=== PATIENT | female | born 1960 | race Caucasian/White ===

== ENCOUNTER → 2018-07-01 11:24 | Outpatient (CLI) | payer OTHER, SELFPAY ==
[2018-07-01 12:21] LABS: Influenza A and B by PCR Rapid Negative (Negative)
== END ==
PROVIDERS: Visit Provider Physician Assistant
DX: R68.89 Other general symptoms and signs (principal)
CPT/HCPCS: 87400

== ENCOUNTER 2018-07-01 13:28 | Emergency (ER) | payer OTHER, SELFPAY ==
[2018-07-01 13:37] VITALS: BP 177/102; PULSE 122; RESP 17; TEMP 36.8; O2SAT 96; BMI 40.3
[2018-07-01 14:07] LABS: Bacteria Urine None Seen
[2018-07-01 14:22] LABS: Calcium Oxalate Crystals Urine Many; RBC Urine 1-5/HPF (0-5/HPF); Squamous Epithelial Cell Urine 5-10 /HPF; WBC Urine 5-10/HPF (0-5/HPF)
[2018-07-01 14:23] LABS: Amorphous Sediment Urine 1+; Culture Indicated Urine Cult Not Indicated
--- NOTE | 2018-07-01 15:28 | DI.RAD.S_ITS ---
PROCEDURE: XR ACUTE ABDOMEN SERIES INDICATIONS: abdominal distention TECHNIQUE: One view chest and two views of the abdomen were acquired. COMPARISON: None. FINDINGS: Surgical changes and devices: None. Chest: Lungs are clear. Heart size is normal. No pleural effusions. No pneumoperitoneum. Abdomen: Bowel gas pattern is normal. A moderate amount of stool is seen within the colon. No suspicious calcifications. Visualized solid organ contours appear normal. Bones: No suspicious bony lesions. S-shaped scoliotic curvature is seen. Age-appropriate bony degenerative changes are seen. IMPRESSION: There is a moderate amount of stool seen within the colon. Please correlate with an underlying history of constipation. Dictated by: Donald Knight M.D. on 07/01/2018 at 14:51 Approved by: Donald Knight M.D. on 07/01/2018 at 14:52
[2018-07-01 15:40] LABS: Add Manual Diff / Slide Review NO; Basophils Absolute Auto 100 /uL (0-100); Basophils Percent Auto 0.8 % (0-2); Eosinophils Absolute Auto 0 /uL (0-450); Eosinophils Percent Auto 0.1 % (2-4); Hematocrit 43.4 % (36-46); Hemoglobin 14.2 g/dL (12.0-16.0); Lymphocytes Absolute Auto 2100 /uL (1100-4500); Lymphocytes Percent Auto 17.9 % (25-40); Mean Corpuscular HGB Conc 32.6 % (30-36); Mean Corpuscular Hemoglobin 28.4 PG (26-34); Monocytes Absolute Auto 400 /uL (0-900); Monocytes Percent Auto 3.7 % (3-14); Neutrophils Absolute Auto 8900 /uL (1500-7000); Neutrophils Percent Auto 77.5 % (50-75); Platelet Count 419 X10^3/uL (150-400); Red Blood Cell Count 4.99 X10^6/uL (4.0-5.2); Red Cell Distribution Width 12.8 % (11.6-14.8); White Blood Cell Count 11.5 X10^3/uL (4.5-11.0)
--- NOTE | 2018-07-01 15:48 | ED.ABDPAIN ---
HPI - Abdominal Pain <Nanette Bueno PA-C - Last Filed: 07/01/18 20:31> General Chief Complaint: Abdominal Pain Stated Complaint: STOMACH PAIN Time Seen by Provider: 07/01/18 17:36 Source: patient Mode of arrival: ambulatory Limitations: no limitations History of Present Illness HPI narrative: This 57-year-old female is sent from walk-in clinic for abdominal discomfort and bloating. She states that she has had this sensation for about 2 weeks. She states that she is having daily bowel movements but these are smaller than normal and feels like she does not completely evacuate. She denies abdominal pain aside from after shoveling a lot of heavy snow recently, none today. She denies any vomiting. she denies any urinary symptoms. She has not had blood in the stools. She has not had any chest pain or dyspnea. She states she feels hot and cold at times but has not had a known fever at home, not sure that this is not due to menopause. She states that she stopped drinking coffee a couple of weeks ago though does drink another caffeinated beverage in the morning. She States that she has quit eating junk food, eating a healthier diet with yogurt, lots of vegetables including cruciferous vegetables and more fiber. she denies any other complaints on systems review aside from some chronic nasal and sinus congestion and sneezing and feeling anxious about her initially elevated blood pressure. Related Data Home Medications Medication Instructions Recorded Confirmed No Known Home Medications 07/01/18 07/01/18 Allergies Allergy/AdvReac Type Severity Reaction Status Date / Time codeine Allergy Verified 07/01/18 13:36 Review of Systems <Nanette Bueno PA-C - Last Filed: 07/01/18 20:31> Review of Systems ROS Unobtainable: All systems reviewed & are unremarkable except as noted in HPI and below PFSH <Nanette Bueno PA-C - Last Filed: 07/01/18 20:31> Medical History Healthy female (Chronic) No pertinent family history (Chronic) Surgical History No pertinent past surgical history (Chronic) Social History Smoking Status: Current every day smoker Social History Smoking Status: Current every day smoker Exam <MARCE Beltran Last Filed: 07/01/18 20:31> Narrative Exam Narrative: GENERAL APPEARANCE: Patient sitting comfortably, appears well. HEENT: PERRL, EOMI, no scleral icterus, normal oropharynx NECK: Supple LUNGS: Clear to auscultation bilaterally. HEART: Rate and rhythm regular, normal S1 and S2, no S3 or S4. ABDOMEN: Soft, nontender, nondistended, bowel sounds present x 4 quadrants, no masses palpable, no hepatosplenomegaly. EXTREMITIES: No edema, no cyanosis DERMATOLOGIC: No jaundice or exanthem NEUROLOGIC: Alert and oriented with normal speech and coordination Initial Vital Signs Initial Vital Signs: Vital Signs Temperature 98.3 F 07/01/18 13:37 Pulse Rate 122 H 07/01/18 13:37 Respiratory Rate 17 07/01/18 13:37 Blood Pressure 177/102 H 07/01/18 13:37 Pulse Oximetry 96 07/01/18 13:37 <Olimpia Swanson DO - Last Filed: 07/02/18 07:57> Initial Vital Signs Initial Vital Signs: Vital Signs Temperature 98.3 F 07/01/18 13:37 Pulse Rate 122 H 07/01/18 13:37 Respiratory Rate 17 07/01/18 13:37 Blood Pressure 177/102 H 07/01/18 13:37 Pulse Oximetry 96 07/01/18 13:37 Course <MARCE Beltran Last Filed: 07/01/18 20:31> Orders Ordered: ED Orders 07/01/18 13:45 Urine Microscopic Stat 07/01/18 15:27 Complete Blood Count AUTO DIFF Stat Comprehensive Metabolic Panel Stat Lipase Stat Partial Thromboplastin Time Stat Prothrombin Time INR Stat 07/01/18 15:28 XR acute abdomen series Stat Vital Signs - 8 hr 07/01/18 13:37 07/01/18 16:23 07/01/18 17:33 Temperature 98.3 F 98.0 F Pulse Rate 122 H 104 H 104 H Respiratory Rate 17 Blood Pressure 177/102 H Blood Pressure [Left Arm] 145/94 H 134/87 Pulse Oximetry 96 96 07/01/18 18:17 Temperature 98.5 F Pulse Rate 101 H Respiratory Rate 16 Blood Pressure 138/73 Blood Pressure [Left Arm] Pulse Oximetry 94 <Olimpia Swanson DO - Last Filed: 07/02/18 07:57> Orders Ordered: ED Orders 07/01/18 13:45 Urine Microscopic Stat 07/01/18 15:27 Complete Blood Count AUTO DIFF Stat Comprehensive Metabolic Panel Stat Lipase Stat Partial Thromboplastin Time Stat Prothrombin Time INR Stat 07/01/18 15:28 XR acute abdomen series Stat Vital Signs - 8 hr 07/01/18 13:37 07/01/18 16:23 07/01/18 17:33 Temperature 98.3 F 98.0 F Pulse Rate 122 H 104 H 104 H Respiratory Rate 17 Blood Pressure 177/102 H Blood Pressure [Left Arm] 145/94 H 134/87 Pulse Oximetry 96 96 07/01/18 18:17 Temperature 98.5 F Pulse Rate 101 H Respiratory Rate 16 Blood Pressure 138/73 Blood Pressure [Left Arm] Pulse Oximetry 94 MDM - Abdominal Pain <Nanette Bueno PA-C - Last Filed: 07/01/18 20:31> Lab Data Result diagrams: 07/01/18 15:27 07/01/18 15:27 Lab Results 07/01/18 07/01/18 07/01/18 Range/Units 13:45 15:27 15:27 WBC 11.5 H (4.5-11.0) X10^3/uL RBC 4.99 (4.0-5.2) X10^6/uL Hgb 14.2 (12.0-16.0) g/dL Hct 43.4 (36-46) % MCV 87.0 (80-100) fL MCH 28.4 (26-34) PG MCHC 32.6 (30-36) % RDW 12.8 (11.6-14.8) % Plt Count 419 H (150-400) X10^3/uL Neut % (Auto) 77.5 H (50-75) % Lymph % (Auto) 17.9 L (25-40) % [place] % (Auto) 3.7 (3-14) % Eos % (Auto) 0.1 L (2-4) % Baso % (Auto) 0.8 (0-2) % Neut # (Auto) 8900 H (0946-5280) /uL Lymph # (Auto) 2100 (7427-9316) /uL [place] # (Auto) 400 (0-900) /uL Eos # (Auto) 0 (0-450) /uL Baso # (Auto) 100 (0-100) /uL PT 11.8 (10.1-12.7) SECONDS INR 1.0 (0.9-1.3) APTT 33 (26.4-36.2) SECONDS Sodium (137-145) mmol/L Potassium (3.4-5.1) mmol/L Chloride (98-107) mmol/L Carbon Dioxide (22-32) mmol/L BUN (7-17) mg/dL Creatinine (0.52-1.04) mg/dL Estimated GFR (>60) mL/min BUN/Creatinine Ratio (6-22) Glucose (70-100) mg/dL Calcium (8.4-10.2) mg/dL Total Bilirubin (0.2-1.3) mg/dL AST (14-36) IU/L ALT (9-52) IU/L Alkaline Phosphatase (38-126) U/L Total Protein (6.3-8.2) g/dL Albumin (3.5-5.0) g/dL Globulin (1.7-4.1) g/dL Albumin/Globulin Ratio (1.0-2.8) Lipase (23-300) U/L Urine RBC 1-5/hpf (0-5/HPF) Urine WBC 5-10/hpf H (0-5/HPF) Ur Squamous Epith Cells 5-10 /hpf H Calcium Oxalate Crystal Many H (None) Amorphous Sediment 1+ Urine Bacteria None seen (None) Ur Culture Indicated? Cult not indicated 07/01/18 Range/Units 15:27 WBC (4.5-11.0) X10^3/uL RBC (4.0-5.2) X10^6/uL Hgb (12.0-16.0) g/dL Hct (36-46) % MCV (80-100) fL MCH (26-34) PG MCHC (30-36) % RDW (11.6-14.8) % Plt Count (150-400) X10^3/uL Neut % (Auto) (50-75) % Lymph % (Auto) (25-40) % [place] % (Auto) (3-14) % Eos % (Auto) (2-4) % Baso % (Auto) (0-2) % Neut # (Auto) (1514-5157) /uL Lymph # (Auto) (1397-0303) /uL [place] # (Auto) (0-900) /uL Eos # (Auto) (0-450) /uL Baso # (Auto) (0-100) /uL PT (10.1-12.7) SECONDS INR (0.9-1.3) APTT (26.4-36.2) SECONDS Sodium 139 (137-145) mmol/L Potassium 4.0 (3.4-5.1) mmol/L Chloride 103 (98-107) mmol/L Carbon Dioxide 25 (22-32) mmol/L BUN 15 (7-17) mg/dL Creatinine 0.50 L (0.52-1.04) mg/dL Estimated GFR > 60.0 (>60) mL/min BUN/Creatinine Ratio 30.0 H (6-22) Glucose 118 H (70-100) mg/dL Calcium 9.6 (8.4-10.2) mg/dL Total Bilirubin 0.6 (0.2-1.3) mg/dL AST 31 (14-36) IU/L ALT 29 (9-52) IU/L Alkaline Phosphatase 60 (38-126) U/L Total Protein 8.4 H (6.3-8.2) g/dL Albumin 4.7 (3.5-5.0) g/dL Globulin 3.7 (1.7-4.1) g/dL Albumin/Globulin Ratio 1.3 (1.0-2.8) Lipase 75 (23-300) U/L Urine RBC (0-5/HPF) Urine WBC (0-5/HPF) Ur Squamous Epith Cells Calcium Oxalate Crystal (None) Amorphous Sediment Urine Bacteria (None) Ur Culture Indicated? Point of care testing: Urine Dip Bedside Urine Glucose Negative Bedside Urine Bilirubin - Negative Bedside Urine Ketone +++ 80 Urine Specific [place] 1.030 Bedside Urine Occult Blood +/- Bedside Urine pH 6.0 Bedside Urine Protein +++ 300 Bedside Urine Urobilinogen +/- 1mg Bedside Urine Nitrite - Negative Bedside Urine Leukocytes - Negative Esterase Imaging Data Abdominal x-ray: Radiologist's impression: 18 Nanette Bueno PA-C Find Patient Imaging Cornelia Rosa 57 F 1960 ACTIVITY DATE EXAM STATUS AUTHOR 07/01/18 15:[address] [address] XRay Report Signed Patient: Cornelia Rosa RMR#: [id number] : 1960cct:[id number] Age/Sex: 57 / FDate of Service: 07/01/18 Loc: ED Accession Number: [id number] Procedure: XR acute abdomen series Ordering Provider: Nanette Bueno P.A-C PROCEDURE: XR ACUTE ABDOMEN SERIES INDICATIONS: abdominal distention TECHNIQUE: One view chest and two views of the abdomen were acquired. COMPARISON: None. FINDINGS: Surgical changes and devices: None. Chest: Lungs are clear. Heart size is normal. No pleural effusions. No pneumoperitoneum. Abdomen: Bowel gas pattern is normal. A moderate amount of stool is seen within the colon. No suspicious calcifications. Visualized solid organ contours appear normal. Bones: No suspicious bony lesions. S-shaped scoliotic curvature is seen. Age-appropriate bony degenerative changes are seen. IMPRESSION: There is a moderate amount of stool seen within the colon. Please correlate with an underlying history of constipation. Dictated by: Donald Knight M.D. on 07/01/2018 at 14:51 Approved by: Donald Knight M.D. on 07/01/2018 at 14:52 <Olimpia Swanson DO - Last Filed: 07/02/18 07:57> Lab Data Lab Results 07/01/18 07/01/18 07/01/18 Range/Units 13:45 15:27 15:27 WBC 11.5 H (4.5-11.0) X10^3/uL RBC 4.99 (4.0-5.2) X10^6/uL Hgb 14.2 (12.0-16.0) g/dL Hct 43.4 (36-46) % MCV 87.0 (80-100) fL MCH 28.4 (26-34) PG MCHC 32.6 (30-36) % RDW 12.8 (11.6-14.8) % Plt Count 419 H (150-400) X10^3/uL Neut % (Auto) 77.5 H (50-75) % Lymph % (Auto) 17.9 L (25-40) % [place] % (Auto) 3.7 (3-14) % Eos % (Auto) 0.1 L (2-4) % Baso % (Auto) 0.8 (0-2) % Neut # (Auto) 8900 H (7401-6920) /uL Lymph # (Auto) 2100 (4514-1601) /uL [place] # (Auto) 400 (0-900) /uL Eos # (Auto) 0 (0-450) /uL Baso # (Auto) 100 (0-100) /uL PT 11.8 (10.1-12.7) SECONDS INR 1.0 (0.9-1.3) APTT 33 (26.4-36.2) SECONDS Sodium (137-145) mmol/L Potassium (3.4-5.1) mmol/L Chloride (98-107) mmol/L Carbon Dioxide (22-32) mmol/L BUN (7-17) mg/dL Creatinine (0.52-1.04) mg/dL Estimated GFR (>60) mL/min BUN/Creatinine Ratio (6-22) Glucose (70-100) mg/dL Calcium (8.4-10.2) mg/dL Total Bilirubin (0.2-1.3) mg/dL AST (14-36) IU/L ALT (9-52) IU/L Alkaline Phosphatase (38-126) U/L Total Protein (6.3-8.2) g/dL Albumin (3.5-5.0) g/dL Globulin (1.7-4.1) g/dL Albumin/Globulin Ratio (1.0-2.8) Lipase (23-300) U/L Urine RBC 1-5/hpf (0-5/HPF) Urine WBC 5-10/hpf H (0-5/HPF) Ur Squamous Epith Cells 5-10 /hpf H Calcium Oxalate Crystal Many H (None) Amorphous Sediment 1+ Urine Bacteria None seen (None) Ur Culture Indicated? Cult not indicated 07/01/18 Range/Units 15:27 WBC (4.5-11.0) X10^3/uL RBC (4.0-5.2) X10^6/uL Hgb (12.0-16.0) g/dL Hct (36-46) % MCV (80-100) fL MCH (26-34) PG MCHC (30-36) % RDW (11.6-14.8) % Plt Count (150-400) X10^3/uL Neut % (Auto) (50-75) % Lymph % (Auto) (25-40) % [place] % (Auto) (3-14) % Eos % (Auto) (2-4) % Baso % (Auto) (0-2) % Neut # (Auto) (1299-3469) /uL Lymph # (Auto) (1087-1559) /uL [place] # (Auto) (0-900) /uL Eos # (Auto) (0-450) /uL Baso # (Auto) (0-100) /uL PT (10.1-12.7) SECONDS INR (0.9-1.3) APTT (26.4-36.2) SECONDS Sodium 139 (137-145) mmol/L Potassium 4.0 (3.4-5.1) mmol/L Chloride 103 (98-107) mmol/L Carbon Dioxide 25 (22-32) mmol/L BUN 15 (7-17) mg/dL Creatinine 0.50 L (0.52-1.04) mg/dL Estimated GFR > 60.0 (>60) mL/min BUN/Creatinine Ratio 30.0 H (6-22) Glucose 118 H (70-100) mg/dL Calcium 9.6 (8.4-10.2) mg/dL Total Bilirubin 0.6 (0.2-1.3) mg/dL AST 31 (14-36) IU/L ALT 29 (9-52) IU/L Alkaline Phosphatase 60 (38-126) U/L Total Protein 8.4 H (6.3-8.2) g/dL Albumin 4.7 (3.5-5.0) g/dL Globulin 3.7 (1.7-4.1) g/dL Albumin/Globulin Ratio 1.3 (1.0-2.8) Lipase 75 (23-300) U/L Urine RBC (0-5/HPF) Urine WBC (0-5/HPF) Ur Squamous Epith Cells Calcium Oxalate Crystal (None) Amorphous Sediment Urine Bacteria (None) Ur Culture Indicated? Point of care testing: Urine Dip Bedside Urine Glucose Negative Bedside Urine Bilirubin - Negative Bedside Urine Ketone +++ 80 Urine Specific [place] 1.030 Bedside Urine Occult Blood +/- Bedside Urine pH 6.0 Bedside Urine Protein +++ 300 Bedside Urine Urobilinogen +/- 1mg Bedside Urine Nitrite - Negative Bedside Urine Leukocytes - Negative Esterase Discharge Plan Departure Patient Disposition: Home Clinical Impression: Constipation Qualifiers: Constipation type: unspecified constipation type Qualified Code(s): K59.00 - Constipation, unspecified Discharge Date/Time: 07/01/18 18:19 Interventions: ED Discharge Assessment Last Done: 07/01/18 18:17 Instructions: DI for Constipation Activity Restrictions/Additional Instructions: there was no acute problem found on your lab tests, and your x-ray showed some constipation but no bowel blockage or other new problem. I suspect that this is related to your recent dietary changes. Please return as we talked about if you have acutely worsening symptoms, or new symptoms such as vomiting or abdominal pain. Otherwise, please continue your healthy diet. Increase your exercise. Try mixing 4-6 oz of apple juice and prune juice with 1 dose of [id number] MiraLax and liquid Maalox to help with your constipation and to produce a normal bowel movement. You can repeat that daily if needed. when the constipation is better, continue MiraLax once daily to help keep the stools regular. Please follow-up with your PCP for recheck in about a week to assess your progress and determine whether any other changes her testing are needed. Prescriptions: No Action No Known Home Medications RF: 0 Referrals: Vicki Byrd PA-C [Primary Care Provider] - <Olimpia Swanson DO - Last Filed: 07/02/18 07:57> [facility] ED Attending Ruthie Attestation: I was immediately available in the department for consultation. Documentation has been reviewed. I agree with assessment and plan.
[2018-07-01 15:49] LABS: Prothrombin Time 11.8 SECONDS (10.1-12.7)
[2018-07-01 15:52] LABS: PTT Partial Thromboplastin Tim 33 SECONDS (26.4-36.2)
[2018-07-01 15:55] LABS: Alanine Aminotransferase 29 IU/L (9-52); Albumin 4.7 g/dL (3.5-5.0); Albumin Globulin Ratio 1.3 (1.0-2.8); Alkaline Phosphatase 60 U/L (38-126); Aspartate Aminotransferase 31 IU/L (14-36); Bilirubin Total 0.6 mg/dL (0.2-1.3); Blood Urea Nitrogen 15 mg/dL (7-17); Calcium 9.6 mg/dL (8.4-10.2); Carbon Dioxide 25 mmol/L (22-32); Chloride 103 mmol/L (98-107); Estimated Glomerular Filt Rate > 60.0 mL/min (>60); Globulin 3.7 g/dL (1.7-4.1); Glucose 118 mg/dL (70-100); HEMOLYSIS < 15 (0-50); Lipase 75 U/L (23-300); Sodium 139 mmol/L (137-145); Total Protein 8.4 g/dL (6.3-8.2)
[2018-07-01 16:23] VITALS: BP 145/94; PULSE 104; TEMP 36.7; O2SAT 96
[2018-07-01 17:33] VITALS: BP 134/87; PULSE 104
--- NOTE | 2018-07-01 18:11 | PC.NURSE ---
I agree with all assessments and treatments completed by the student nurse.
[2018-07-01 18:17] VITALS: BP 138/73; PULSE 101; RESP 16; TEMP 36.9; O2SAT 94
== END 2018-07-01 18:19 | disposition home or self-care (01) ==
PROVIDERS: Emergency Medicine; Emergency Provider Internal Medicine; PCP Physician Assistant
DX: K59.00 Constipation, unspecified (principal)
CPT/HCPCS: 36415; 74022; 80053; 81003; 81015; 83690; 85025; 85610; 85730; 99283; 99284

== ENCOUNTER 2018-07-24 11:58 | Emergency (ER) | payer OTHER, SELFPAY ==
[2018-07-24 12:01] VITALS: BP 153/103; PULSE 125; RESP 16; TEMP 36.9; O2SAT 97; BMI 39.4
[2018-07-24 13:40] VITALS: BP 162/71; PULSE 102; RESP 20; O2SAT 97
--- NOTE | 2018-07-24 14:01 | ED_ITS ---
HPI - Skin/Abscess/Foreign Bdy <YONI Johnson - Last Filed: 07/24/18 22:44> General Chief complaint: Skin/Abscess/Foreign Body Stated complaint: CYST ON BACK,BLACK AROUND Time Seen by Provider: 07/24/18 13:09 Source: patient Mode of arrival: ambulatory Limitations: no limitations History of Present Illness HPI narrative: 57-year-old healthy female that is an everyday smoker for comp laint of having a cyst to her back. She states that approximately 7 days ago she was taking a shower when the cyst to her back opened and drained fluid. She states that now it is itching. she denies any drainage from the area since this timeframe. No trauma to the area. She denies any fevers. She states that she has had sinus issues over the past several weeks. she was treated for sinusitis with antibiotics however she states that she has not been taking the antibiotics as prescribed and is only taking a few pills. she states that sinus discomfort is now better. however she is still having drainage. She was having pain that went into her teeth and also had sinuses this has resolved. she is tolerating p.o. intake well. she denies any discomfort. No shortness of breath. No acute distress. No other concerns or complaints. Related Data Previous Rx's Medication Instructions Recorded fluoxetine 20 mg capsule 20 mg PO DAILY #30 cap 07/13/18 doxycycline monohydrate 100 mg 100 mg PO BID #20 cap 07/21/18 capsule Allergies Allergy/AdvReac Type Severity Reaction Status Date / Time codeine Allergy Verified 07/13/18 14:39 Review of Systems <YONI Johnson - Last Filed: 07/24/18 22:44> Constitutional Denies chills, Denies fever(s), Denies lethargy and Denies weakness Eyes Denies change in vision, Denies eye discharge, Denies irritation and Denies loss of vision ENT Ears, Nose, Mouth, and Throat: Denies change in voice, Denies neck pain and Denies sore throat Comments: sinus drainage Cardiovascular Denies chest pain, Denies irregular heart rhythm, Denies lightheadedness, Denies palpitations, Denies dyspnea, Denies dyspnea on exertion and Denies orthopnea Respiratory Denies cough, Denies dyspnea, Denies dyspnea on exertion and Denies wheezing Gastrointestinal Gastrointestinal: Denies abdominal pain, Denies change in bowel habits, Denies diarrhea, Denies nausea and Denies vomiting Genitourinary Denies hematuria, Denies flank pain, Denies urinary incontinence and Denies urinary urgency Musculoskeletal Denies neck pain Integumentary/Breasts Comments: Cyst to a back Neurologic Denies confusion, Denies loss of vision and Denies weakness Psychiatric Denies anxiety, Denies confusion, Denies depression, Denies homicidal ideation and Denies suicidal ideation Endocrine Denies palpitations Allergic/Immunologic Denies wheezing PFSH <YONI Johnson - Last Filed: 07/24/18 22:44> Medical History Healthy female (Chronic) No pertinent family history (Chronic) Surgical History No pertinent past surgical history (Chronic) Social History Smoking Status: Current every day smoker Social History Smoking Status: Current every day smoker Exam <YONI Johnson - Last Filed: 07/24/18 22:44> Initial Vital Signs Initial Vital Signs: Vital Signs Temperature 98.4 F 07/24/18 12:01 Pulse Rate 125 H 07/24/18 12:01 Respiratory Rate 16 07/24/18 12:01 Blood Pressure 153/103 H 07/24/18 12:01 Pulse Oximetry 97 07/24/18 12:01 Const General: cooperative and well developed Nutritional Appearance: well nourished Orientation: alert, awake, oriented x3 and not confused HENMT Ears: external ears normal and TM's normal bilaterally Face and sinus: normal facial exam and sinuses nontender Mouth: oral mucosae normal and moist mucous membranes Throat: posterior oropharynx normal Eyes Conjunctivae: conjunctivae normal Sclera: sclerae normal Pupils: PERRL EOM: EOM intact bilaterally Neck Neck: normal visual inspection, trachea midline, No lymphadenopathy, No midline deformity and No JVD Lymphatic: No lymphedema Chest Chest: normal inspection of the chest Resp Effort & Inspection: normal respiratory effort, able to speak in complete sentences, no respiratory distress and no use of accessory muscles Auscultation: clear to auscultation bilaterally, no rales, no rhonchi and no wheezes Cardio Rate: regular rate Rhythm: regular rhythm Heart Sounds: no click, no gallops, no murmurs and no rubs Pulses: normal peripheral pulses Skin Other: erythema to right side of thoracic back approximately 2.5 cm by 1 cm with wound area that appears to be healing well with no signs of infection. No induration no fluctuance. Neuro General: alert, oriented x3, gait normal and no focal motor deficits Speech: speech normal <Patience Calero MD - Last Filed: 07/28/18 18:10> Initial Vital Signs Initial Vital Signs: Vital Signs Temperature 98.4 F 07/24/18 12:01 Pulse Rate 125 H 07/24/18 12:01 Respiratory Rate 16 07/24/18 12:01 Blood Pressure 153/103 H 07/24/18 12:01 Pulse Oximetry 97 07/24/18 12:01 Course <YONI Johnson - Last Filed: 07/24/18 22:44> Vital Signs - 8 hr 07/24/18 14:45 Pulse Rate 105 H Respiratory Rate 18 Pulse Oximetry 97 <Patience Calero MD - Last Filed: 07/28/18 18:10> Vital Signs - 8 hr 07/24/18 14:45 Pulse Rate 105 H Respiratory Rate 18 Pulse Oximetry 97 MDM - Skin/Abscess/Foreign Bdy <YONI Johnson - Last Filed: 07/24/18 22:44> MDM Narrative Medical decision making narrative: Cyst area to back of patient's complaint with no signs of infection. No induration no fluctuance wound area appears to be healing well. Healing process most likely causing her itching sensation She feels. unknown etiology of this cyst prior to drainage differential possibilities of abscess or epidermoid cyst. patient reassured. sinusitis symptoms appear to be doing better after taking her antibiotics however she is not taking them as directed recommended she complete the course as directed. Use [id number] Tylenol or Motrin as needed for any discomfort. May use saline irrigation and nasal passages to help with congestion. blood pressure and heart rate were elevated in the emergency room today. After asking patient to relax her blood pressure and heart rate normalized. Patient states that she is anxious coming to the emergency room. will have her check her blood pressure a few times a day and then bring results with her as she follows up with primary care provider in the next week or 2. if any worsening symptoms return to the emergency room. Discharge Plan Departure Patient Disposition: Home Clinical Impression: Sebaceous cyst Acute sinusitis Qualifiers: Sinusitis location: unspecified location Recurrence: not specified as recurrent Qualified Code(s): J01.90 - Acute sinusitis, unspecified Discharge Date/Time: 07/24/18 14:45 Interventions: ED Discharge Assessment Last Done: 07/24/18 14:45 Activity Restrictions/Additional Instructions: Ruptured cyst to to your back appears to be healing well with no acute signs of infection. Recommend finishing antibiotics that was already prescribed for sinusitis as directed. May use saline irrigation and nasal passages to help with sinus drainage. Use [id number] Tylenol or Motrin as needed for any discomfort. Blood pressure is elevated today in the emergency room. Recommend checking a blood pressure a few times a day and recording results. Bring these results to to her primary care provider in a week or 2 when you follow-up with her primary care provider. For any worsening symptoms return to the emergency room. Prescriptions: No Action fluoxetine 20 mg capsule 20 mg PO DAILY Qty: 30 RF: 3 doxycycline monohydrate 100 mg capsule 100 mg PO BID Qty: 20 RF: 0 Referrals: Vicki Byrd PA-C [Primary Care Provider] -
[2018-07-24 14:45] VITALS: PULSE 105; RESP 18; O2SAT 97
== END 2018-07-24 14:45 | disposition home or self-care (01) ==
PROVIDERS: Emergency Provider Nurse Practitioner Family; PCP Physician Assistant
DX: L72.3 Sebaceous cyst (principal); J01.90 Acute sinusitis, unspecified
CPT/HCPCS: 99282

== ENCOUNTER → 2018-10-25 08:18 | Outpatient (CLI) | payer OTHER, SELFPAY ==
[2018-10-25 09:32] LABS: Cholesterol 306 mg/dL (140-199); HDL Cholesterol 40 mg/dL (40-60); LDL Cholesterol Calculated 232 mg/dL (<100); Triglycerides 171 mg/dL (35-150)
[2018-10-27 18:39] LABS: Fecal Immunochemical Test NOT DETECTED (NOT DETECTED)
== END ==
PROVIDERS: PCP Physician Assistant; Visit Provider Physician Assistant
DX: I10 Essential (primary) hypertension (principal); Z13.220 Encounter for screening for lipoid disorders; Z13.6 Encounter for screening for cardiovascular disorders; Z12.11 Encounter for screening for malignant neoplasm of colon
CPT/HCPCS: 80061; 82274

== ENCOUNTER → 2018-11-17 15:00 | Outpatient (CLI) | payer OTHER, SELFPAY ==
--- NOTE | 2018-11-17 15:02 | DI.MG.S_ITS ---
BILATERAL DIGITAL SCREENING MAMMOGRAM 3D/2D WITH CAD: 11/17/2018 CLINICAL: Routine screening. Baseline exam. No prior exams were available for comparison. There are scattered fibroglandular elements in both breasts. Current study was also evaluated with a Computer Aided Detection (CAD) system. No significant masses, calcifications, or other findings are seen in either breast. IMPRESSION: NEGATIVE There is no mammographic evidence of malignancy. A 1 year screening mammogram is recommended. This exam was interpreted at Station ID: [id number]. NOTE: For mammograms, a report in lay terms will be sent to the patient. Approximately 15% of breast malignancies will not be visualized mammographically. In the management of a palpable breast mass, a negative mammogram must not discourage biopsy of a clinically suspicious lesion. Electronically Signed By: Sunil rodriguez/henna:11/17/2018 18:50:54 letter sent: Normal Exam ACR BI-RADS Category 1: Negative [id number]
== END ==
PROVIDERS: PCP Physician Assistant; Visit Provider Physician Assistant
DX: Z12.31 Encounter for screening mammogram for malignant neoplasm of breast (principal)
CPT/HCPCS: 77063; 77067

== ENCOUNTER → 2018-12-06 09:46 | Outpatient (CLI) | payer OTHER, SELFPAY ==
[2018-12-06 10:43] LABS: Cholesterol 153 mg/dL (140-199); HDL Cholesterol 38 mg/dL (40-60); LDL Cholesterol Calculated 90 mg/dL (<100); Triglycerides 124 mg/dL (35-150)
== END ==
PROVIDERS: PCP Physician Assistant; Visit Provider Physician Assistant
DX: E78.2 Mixed hyperlipidemia (principal)
CPT/HCPCS: 36415; 80061

== ENCOUNTER → 2019-11-24 10:01 | Outpatient (CLI) | payer OTHER, SELFPAY ==
[2019-11-24 11:09] LABS: Add Manual Diff / Slide Review NO; Basophils Absolute Auto 100 /uL (0-100); Basophils Percent Auto 0.6 % (0-2); Eosinophils Absolute Auto 100 /uL (0-450); Eosinophils Percent Auto 1.2 % (2-4); Hematocrit 42.6 % (36-46); Lymphocytes Absolute Auto 2800 /uL (1100-4500); Lymphocytes Percent Auto 28.3 % (25-40); Mean Corpuscular HGB Conc 32.9 % (30-36); Mean Corpuscular Hemoglobin 29.3 PG (26-34); Mean Corpuscular Volume 89.1 fL (80-100); Monocytes Absolute Auto 700 /uL (0-900); Monocytes Percent Auto 7.2 % (3-14); Neutrophils Absolute Auto 6200 /uL (1500-7000); Neutrophils Percent Auto 62.7 % (50-75); Platelet Count 351 X10^3/uL (150-400); Red Blood Cell Count 4.78 X10^6/uL (4.0-5.2); Red Cell Distribution Width 12.9 % (11.6-14.8); White Blood Cell Count 9.9 X10^3/uL (4.5-11.0)
[2019-11-24 11:38] LABS: Alanine Aminotransferase 22 IU/L (<35); Albumin 4.3 g/dL (3.5-5.0); Albumin Globulin Ratio 1.4 (1.0-2.8); Alkaline Phosphatase 56 U/L (38-126); Aspartate Aminotransferase 28 IU/L (14-36); BUN Creatinine Ratio 27.1 (6-22); Bilirubin Total 0.8 mg/dL (0.2-1.3); Blood Urea Nitrogen 16 mg/dL (7-17); Calcium 9.3 mg/dL (8.4-10.2); Carbon Dioxide 30 mmol/L (22-32); Chloride 101 mmol/L (98-107); Cholesterol 168 mg/dL (140-199); Estimated Glomerular Filt Rate > 60.0 mL/min (>60); Globulin 3.1 g/dL (1.7-4.1); Glucose 120 mg/dL (70-100); HDL Cholesterol 34 mg/dL (40-60); HEMOLYSIS < 15 (0-50); LDL Cholesterol Calculated 103 mg/dL (<100); Potassium 4.4 mmol/L (3.4-5.1); Sodium 138 mmol/L (137-145); Total Protein 7.4 g/dL (6.3-8.2); Triglycerides 154 mg/dL (35-150)
[2019-11-24 12:06] LABS: TSH w/ Reflex to FT4 1.23 uIU/mL (0.47-4.68)
== END ==
PROVIDERS: PCP Registered Nurse Diabetes Educator; Referring Provider Registered Nurse Diabetes Educator; Visit Provider Registered Nurse Diabetes Educator
DX: E78.2 Mixed hyperlipidemia (principal); F41.8 Other specified anxiety disorders; I10 Essential (primary) hypertension
CPT/HCPCS: 36415; 80053; 80061; 84443; 85025

== ENCOUNTER → 2020-01-04 15:03 | Outpatient (CLI) | payer OTHER, SELFPAY ==
--- NOTE | 2020-01-04 15:06 | DIET.PN ---
Dietary Progress Note Assessment: 59y F referred to nutrition for preDM (FBG 120), HTN, HLD (LDL 103, HDL 34) and morbid obesity (BMI 41.6) Usual Day: wakes at 7-830am bp med and probiotic c coffee 10am: banana (prefers slightly underripe) or frosted flakes, mini wheats, cheerios c 2% milk watches tv, makes bed, showers, vacuums, feeds chickens, gardens Lunch (2pm): sandwich-chicken, arizmendi, mustard, lettuce, tomato, white cheese, salad-lettuce, tomato, unsalted sunflower seeds, croutons, red pepper, green pepper, alfalfa sprouts-Kens Red Raspberry Vinaigrette, Buttermilk Ranch Dinner (8-9pm): red meat (prime rib steak, hamburger) chicken tenderloins, meatloaf, tacos, roast, with potatos dessert after dinner in winter no evening snacks likes to be in bed by 1030pm, trouble sleeping, wakes a lot Pt has loose stools with fish and asparagus, cooked spinach, garlic, onions (bloating) doesn't drink soda, drinks a lot of water and coffee is on Prozac which she feels may have caused some weight gain, ~25# Pt has property with a garden and uses a push mower, otherwise no planned physical activity. HT: 5'5 WT: 250# UBW: 215# BMI: 41.6 Labs: FBG 120 H, LDL 103 H, HDL 34 L Nutrition Diagnosis: altered nutrition related laboratory values r/t undesirable food choices and physical inactivity aeb pt diet reflects high carb, protein and fruit with low intake veggies and soluble fiber, FBG 120, LDL 103, HDL 34, BMI 41.6, pt reports no physical activity routine. Interventions: 1. Discussed pts low sodium diet, pt may be too low in sodium. Discussed role of sodium in body as electrolyte, recommended levels, hidden sources of sodium. Encouraged pt to keep food journal to monitor sodium intake and aim for 1.5-2g/d. 2. Discussed healthy plate balance, used food models to demonstrate meal building to ensure balance. 3. Introduced pt to products which may be beneficial including a low-sodium deli turkey and a low-sugar sri lankan yogurt. 4. Discussed insulin resistance in preDM and three ways to improve insulin sensitivity including 1. consistent carb diet 2. 150min intentional physical activity per day 3. 13h overnight fasting. Pt will start walking at [facility] and walking up the hill instead of taking 4wheeler to feed chickens. EER: 1,500-2,000mg sodium Monitoring/Evaluations: f/u in 6w to assess progress, discuss healthy fats in cooking
== END ==
PROVIDERS: PCP Registered Nurse Diabetes Educator; Referring Provider Registered Nurse Diabetes Educator; Visit Provider Registered Nurse Diabetes Educator
DX: R73.03 Prediabetes (principal); I10 Essential (primary) hypertension; E78.5 Hyperlipidemia, unspecified; E66.01 Morbid (severe) obesity due to excess calories; Z68.41 Body mass index [BMI] 40.0-44.9, adult
CPT/HCPCS: 97802

== ENCOUNTER → 2020-11-16 12:47 | Outpatient (CLI) | payer OTHER, SELFPAY ==
--- NOTE | 2020-11-16 12:48 | DI.MG.S_ITS ---
BILATERAL DIGITAL SCREENING MAMMOGRAM 3D/2D WITH CAD: 11/16/2020 CLINICAL: Routine screening. Comparison is made to exam dated: 11/17/2018 [facility]. The tissue of both breasts is predominantly fatty. Current study was also evaluated with a Computer Aided Detection (CAD) system. There is an oval equal density focal asymmetry with a circumscribed margin in the left breast at 1 o'clock middle depth. This is more prominent and increased in size. No other significant masses, calcifications, or other findings are seen in either breast. IMPRESSION: INCOMPLETE: NEEDS ADDITIONAL IMAGING EVALUATION The oval equal density focal asymmetry in the left breast most likely is a lymph node and is indeterminate. Additional views with possible ultrasound are recommended. This exam was interpreted at Station ID: [id number]. NOTE: For mammograms, a report in lay terms will be sent to the patient. Approximately 15% of breast malignancies will not be visualized mammographically. In the management of a palpable breast mass, a negative mammogram must not discourage biopsy of a clinically suspicious lesion. Electronically Signed By: Ana mock/henna:11/18/2020 08:31:06 letter sent: Additional Imaging Needed ACR BI-RADS Category 0: Incomplete 3340F
== END ==
PROVIDERS: PCP Registered Nurse Diabetes Educator; Referring Provider Registered Nurse Diabetes Educator; Visit Provider Registered Nurse Diabetes Educator
DX: Z12.31 Encounter for screening mammogram for malignant neoplasm of breast (principal)
CPT/HCPCS: 77063; 77067

== ENCOUNTER → 2020-12-04 12:37 | Outpatient (CLI) | payer OTHER, SELFPAY ==
[2020-12-04 13:51] LABS: Hematocrit 40.4 % (36-46); Hemoglobin 12.8 g/dL (12.0-16.0); Mean Corpuscular HGB Conc 31.6 % (30-36); Mean Corpuscular Hemoglobin 27.6 PG (26-34); Mean Corpuscular Volume 87.3 fL (80-100); Platelet Count 358 X10^3/uL (150-400); Red Blood Cell Count 4.63 X10^6/uL (4.0-5.2); Red Cell Distribution Width 13.6 % (11.6-14.8); White Blood Cell Count 11.7 X10^3/uL (4.5-11.0)
[2020-12-04 14:16] LABS: Alanine Aminotransferase 21 IU/L (<35); Albumin 4.2 g/dL (3.5-5.0); Albumin Globulin Ratio 1.3 (1.0-2.8); Alkaline Phosphatase 65 U/L (38-126); Aspartate Aminotransferase 30 IU/L (14-36); BUN Creatinine Ratio 28.1 (6-22); Bilirubin Total 0.4 mg/dL (0.2-1.3); Blood Urea Nitrogen 16 mg/dL (7-17); Calcium 9.4 mg/dL (8.4-10.2); Carbon Dioxide 31 mmol/L (22-32); Chloride 102 mmol/L (98-107); Cholesterol 136 mg/dL (140-199); Estimated Glomerular Filt Rate > 60.0 mL/min (>60); Globulin 3.3 g/dL (1.7-4.1); Glucose 108 mg/dL (80-110); HDL Cholesterol 36 mg/dL (40-60); HEMOLYSIS < 15 (0-50); LDL Cholesterol Calculated 75 mg/dL (<100); Potassium 4.8 mmol/L (3.4-5.1); Sodium 139 mmol/L (137-145); Total Protein 7.5 g/dL (6.3-8.2); Triglycerides 124 mg/dL (35-150)
[2020-12-04 14:18] LABS: Hemoglobin A1C% w Est Avg Glu 6.8 % (4.0-6.0)
== END ==
PROVIDERS: PCP Registered Nurse Diabetes Educator; Referring Provider Registered Nurse Diabetes Educator; Visit Provider Registered Nurse Diabetes Educator
DX: E78.2 Mixed hyperlipidemia (principal); I10 Essential (primary) hypertension; R73.01 Impaired fasting glucose
CPT/HCPCS: 36415; 80053; 80061; 83036; 84443; 85027

== ENCOUNTER → 2020-12-25 15:56 | Outpatient (CLI) | payer OTHER, SELFPAY ==
[2020-12-25 17:49] LABS: Hemoglobin A1C% w Est Avg Glu 6.7 % (4.0-6.0)
== END ==
PROVIDERS: PCP Registered Nurse Diabetes Educator; Referring Provider Registered Nurse Diabetes Educator; Visit Provider Registered Nurse Diabetes Educator
DX: R73.01 Impaired fasting glucose (principal)
CPT/HCPCS: 36415; 83036

== ENCOUNTER → 2020-12-27 14:45 | Outpatient (CLI) | payer OTHER, SELFPAY ==
[2020-12-30 10:08] LABS: Fecal Immunochemical Test Negative (Negative)
== END ==
PROVIDERS: PCP Registered Nurse Diabetes Educator; Referring Provider Registered Nurse Diabetes Educator; Visit Provider Registered Nurse Diabetes Educator
DX: Z00.00 Encounter for general adult medical examination without abnormal findings (principal)
CPT/HCPCS: 82274

== ENCOUNTER → 2021-01-02 13:25 | Outpatient (CLI) | payer OTHER, SELFPAY ==
--- NOTE | 2021-01-02 | DI.MG.S_ITS ---
UNILATERAL LEFT DIGITAL DIAGNOSTIC MAMMOGRAM 3D/2D WITH ADDITIONAL VIEWS: 01/02/2021 CLINICAL: Additional evaluation requested from prior study. Comparison is made to exams dated: 11/16/2020 mammogram and 11/17/2018 mammogram - [facility]. There are scattered fibroglandular elements in left breast. There is a 1 cm oval equal density focal asymmetry with a circumscribed margin in the left breast at 1 o'clock middle depth. This is more prominent and increased in size compared to 2019 mammogram. No other significant masses or calcifications are seen in the breast. IMPRESSION: INCOMPLETE: NEEDS ADDITIONAL IMAGING EVALUATION The 1 cm oval equal density focal asymmetry in the left breast most likely is a cyst or a lymph node and is indeterminate. An ultrasound is recommended for further evaluation and is scheduled to immediately follow this examination. This exam was interpreted at Station ID: [id number]. NOTE: For mammograms, a report in lay terms will be sent to the patient. Approximately 15% of breast malignancies will not be visualized mammographically. In the management of a palpable breast mass, a negative mammogram must not discourage biopsy of a clinically suspicious lesion. Electronically Signed By: Sunil Leblanc M.D. aty/:01/02/2021 14:03:46 ACR BI-RADS Category 0: Incomplete 3340F
--- NOTE | 2021-01-02 13:27 | DI.US.S_ITS ---
ULTRASOUND OF LEFT BREAST: 01/02/2021 CLINICAL: Patient returns today to evaluate a focal asymmetry in the left breast. Comparison is made to exams dated: 01/02/2021 mammogram, 11/16/2020 mammogram, and 11/17/2018 mammogram - [facility]. Color flow and real-time ultrasound of the left breast were performed. Hahn scale images of the real-time examination were reviewed. There is a 0.8 cm x 1.5 cm x 0.7 cm wider than tall oval cyst in the left breast at 3 o'clock posterior depth 9 cm from the nipple. This oval cyst is hypoechoic with a well-defined boundary and internal debris with echoes. This correlates with mammography findings. Color flow imaging demonstrates that there is no vascularity present. IMPRESSION: PROBABLY BENIGN The 0.8 cm x 1.5 cm x 0.7 cm wider than tall oval cyst in the left breast is consistent with a complicated cyst and is probably benign. A follow-up left mammogram and an ultrasound in 6 months is recommended to demonstrate stability. Findings and recommendations were conveyed to the patient during today's evaluation. This exam was interpreted at Station ID: [id number]. Electronically Signed By: Sunil Leblanc M.D. aty/:01/02/2021 14:30:01 letter sent: Followup Recommended Ultrasound BI-RADS: 3 Probably benign
== END ==
PROVIDERS: PCP Registered Nurse Diabetes Educator; Referring Provider Registered Nurse Diabetes Educator; Visit Provider Registered Nurse Diabetes Educator
DX: R92.8 Other abnormal and inconclusive findings on diagnostic imaging of breast (principal); N60.02 Solitary cyst of left breast
CPT/HCPCS: 76642; 77065; G0279

== ENCOUNTER → 2021-01-07 15:32 | Outpatient (CLI) | payer OTHER, SELFPAY ==
--- NOTE | 2021-01-07 17:36 | DIET.PN1 ---
Initial Diabetes Assessment Name: Cornelia Rosa Date: 01/07/21 Time: 330-430p Dx: Type II Diabetes Provider: [place] PM: HLD, HTN, depression c anxiety, obesity, peripheral edema Cornelia presents today with new dx of T2DM with HgA1c of 6.7%. Reports FH of DM with father and brother, both . Reports she would like to manage DM without medications. States her partner's mother has DM and has warned her against Metformin because it will cause memory loss. Cornelia states she has reduced her sugar intake since diagnosis. Reports also reducing sodium intake to help HTN and edema. Endorses nibbling through the day-- grazing instead of actual meals sometimes. Diet Recall: 1030a: toast x 2 with butter or jam 12-1: nuts 230-3p: half an apple with caramel sauce pack and veggies with ranch 6-830p: salad and pork with 1/2c rice OR red meat with one potato and veg (g beans or corn) Beverages: 3-4 x 16oz, starbucks refreshe, iced white mocha Anthropometrics: Ht: 64 Wt: 283.8# (last PCP visit) Physical Activity: Recently started walking 20 mins per day this week. ADLs include managing a few acres. Self-Monitoring Blood Glucose: None. May benefit from SMBG, especially if not open to taking Metformin. Pertinent Labs: HgA1c: 6.7% Cholesterol: 136 LDL: 75 HDL: 36 L T Diabetes Medications: None Intervention: This participant was very receptive. Provided appropriate educational handouts. Discussed the following topics: - Completed intake assessment. Discussed barriers to care. - Pathophysiology of T2DM - HgA1c and goal - Potential for SMBG if she would like to see how BG are changing with lifestyle changes -Plate Method, impact of macronutrients on blood sugar, meal timing, carb counting, pairing macronutrients and spreading out CHO for better BG mgmnt - Medication safety - insulin resistance and weight, nutrition, and phys activity - Rec servings for carbohydrates at meals and snacks - Role of physical activity and following provider guidelines for safety - Created SMART goals for pt self-care and success. Goals: - 20 min walk 3 days per week min - Eat protein with carbs at meals and snacks Follow-up: TARA BELTRÁN 1:1 follow-up 4 weeks. Cornelia plans to visit her daughter next week (about to give ). Plans to attend DM ed classes in February as well. Next visit topic 1:1: appropriate meal plan based on food preferences Sherri Levi RDN, [facility] Certified Diabetes Care and Geography Department Chair P: [phone] Thank you for this referral
== END ==
PROVIDERS: PCP Registered Nurse Diabetes Educator; Referring Provider Registered Nurse Diabetes Educator; Visit Provider Registered Nurse Diabetes Educator
DX: E11.9 Type 2 diabetes mellitus without complications (principal); E78.5 Hyperlipidemia, unspecified; I10 Essential (primary) hypertension; E66.9 Obesity, unspecified; Z68.42 Body mass index [BMI] 45.0-49.9, adult; Z71.3 Dietary counseling and surveillance
CPT/HCPCS: G0108

== ENCOUNTER → 2021-02-05 12:53 | Outpatient (CLI) | payer OTHER, SELFPAY ==
--- NOTE | 2021-02-06 14:21 | DIAB.MNT ---
Diabetes Medical Nutrition Therapy Assessment Name: Cornelia Rosa Date: 02/05/21 Time: 1-230p Dx: Type II Diabetes Provider: [place] Preferred Learning Style: Hands-on/doing Cornelia presents today to discuss nutrition more in depth and how this impacts her diabetes. Interested in DM ed classes. Reports 20-40# weight gain from previous depression med. States she would like to avoid DM meds and manage with lifestyle. Cornelia endorses efforts in smoking cessation more recently. Has reduced from 1+ pk per day to 1/2-3/4 per day. States this is a struggle for her. Her boyfriend also smokes. Cornelia is working with her provider on managing her depression. Currently taking bupropion HCl, but at a lower dose than rx'd. She would like to discuss with provider before increasing, worried specifically about seizures. Also endorses covid vaccine hesitancy. She is not completely against vaccination, but seems unsure if it will make a difference. Diet Recall: 930-10: 1c cheerios with 1 1/3c 2% milk OR HB egg and cheese OR oatmeal with b sugar and milk 130p: salad with 2TBS raspberry vinaigrette + 1c pasta with beef 5-6p: one hamburger with veg toppings 8p: toast or banana or yoplait yogurt Beverages: 3 x 16.9oz water, 1-2c coffee unsweetened, gatorade zero (rx'd by embroidery specialist) Anthropometrics: Ht: 5'5 Wt: 280# reported Physical Activity: walking with friends when shopping. Gardening when weather permits. Wants to walk outside and bought tracking poles to assist. Did not walk recently due to the rain, no raincoat at home. Self-Monitoring Blood Glucose: No SMBG currently. Cornelia seems very curious about BG monitoring. Encouraged her to discuss further with provider if she wants to move forward with this. Could be beneficial if she wants to see progress in BG prior to HgA1c, especially since she is hesitant about taking Metformin. Diabetes Medications: None Pertinent Labs: HgA1c 6.7% Past Medical History: (Last Reviewed 12/31/20 @ 14:33 by Keo Nice [facility]) Abnormal mammogram Diabetes mellitus type 2, controlled, without complications Healthy female No pertinent family history No pertinent past surgical history Obesity Peripheral edema Nutrition Rx: Carbohydrates: Daily: 130-165g Meal:30-45g Snack: 15-30g Nutrition Diagnosis: - Nutrition knowledge deficit r/t new dx T2Dm aeb pt report and HgA1c - Physical inactivity r/t not owning appropriate rain gear for walks aeb pt report Intervention: This participant was very receptive. Provided appropriate educational handouts. Discussed the following topics: Completed intake assessment. Discussed barriers to care. Options for BG checks and equipment needed via rx Plate Method, impact of macronutrients on blood sugar, meal timing, carbohydrate counting, pairing macronutrients and spreading out carbohydrates for better blood glucose management Recommended servings for carbohydrates at meals and snacks Heart health nutrition Importance of vaccines with older adults and chronic disease populations impacted most by covid Depression and impact on health Congratulated her on her smoking cessation efforts, benefits of cessation Brainstormed appropriate meal plan based on food preferences Role of physical activity and following guidelines for safety Created SMART goals for patient self-care and success. Goals: try yoplait light instead of original Get a rain coat to walk outside Have protein at each meal and snack Follow-up: TARA BELTRÁN follow-up in 2-3 weeks 1:1 in addition to full DM ed classes Sherri Levi RDN, [facility] Certified Diabetes Care and Paper Finisher P: [phone] Thank you for this referral
== END ==
PROVIDERS: PCP Registered Nurse Diabetes Educator; Referring Provider Registered Nurse Diabetes Educator; Visit Provider Registered Nurse Diabetes Educator
DX: E11.9 Type 2 diabetes mellitus without complications (principal); Z71.3 Dietary counseling and surveillance
CPT/HCPCS: 97802

== ENCOUNTER → 2021-02-11 09:30 | Outpatient (CLI) | payer OTHER, SELFPAY ==
--- NOTE | 2021-02-11 13:58 | DIAB.FU ---
Diabetes Education Class Series: Diabetes and Nutrition Name: Cornelia Rosa Date: 02/11/21 Time: [id number] Dx: Type II Diabetes Cornelia presents to class 1 of 3 with her support friend, Cathy who also has T2DM. States she has been working on nutrition and walking recently. She participated well in class and asked appropriate questions. Class topics covered: ? Debunk nutrition myths and discuss how to sustain healthy eating long-term through moderation and variety ? Define macronutrients and determine their impact on blood sugars ? Discuss macronutrient pairing, Plate Method, and carb counting ? Review general recommendations for carbohydrates ? Practice label reading ? Discuss the role of fiber in diabetes and provide examples of sources ? Review heart health nutrition: fats, fiber, and sodium ? Determine recommendations for grocery shopping and eating out ? Discuss alcohol recommendations ? Review the role of substitute sugars in diabetes management ? Set SMART goals Goal Set: Eat salad q night with dinner; walk 15 min 3 times per week. Follow-up: Diabetes Physiology and Medication Class in one week Sherri Levi RDN, [facility] Registered Dietitian, Certified Diabetes Care and Lab Asst [phone] [email or web address]
== END ==
PROVIDERS: PCP Registered Nurse Diabetes Educator; Referring Provider Registered Nurse Diabetes Educator; Visit Provider Registered Nurse Diabetes Educator
DX: E11.9 Type 2 diabetes mellitus without complications (principal); Z71.3 Dietary counseling and surveillance
CPT/HCPCS: G0109

== ENCOUNTER → 2021-02-18 09:22 | Outpatient (CLI) | payer OTHER, SELFPAY ==
--- NOTE | 2021-02-19 17:11 | DIAB.FU ---
Diabetes Education Class Series: Diabetes Physiology and Medications Name: Cornelia Rosa Date: 02/19/21 Time: 814-4140c Cornelia presents with support person, friend Cathy. States she has been working on being more active. She was attentive today and participated well in class. Class topics covered: ? Diabetes pathophysiology ? Discuss different types of diabetes ? Review criteria for diagnosing diabetes ? Review HgA1c measurement and associated blood sugars ? Review blood sugar monitoring safety, technique, and goals ? Discuss ways to reduce complications associated with diabetes, includes microvascular and macrovascular complications ? Review diabetes medications types, action, and side effects ? Health care visits recommended for people with T2DM ? Immunization recommended for people with T2DM ? SMART goals review Goal Set: Walk 20-30 min daily Follow-up: Diabetes Lifestyle and Ongoing Support Class next week Sherri Levi RDN, [facility] Registered Dietitian, Certified Diabetes Care and Melt Down Furnace Operator [phone] [email or web address]
== END ==
PROVIDERS: PCP Registered Nurse Diabetes Educator; Referring Provider Registered Nurse Diabetes Educator; Visit Provider Registered Nurse Diabetes Educator
DX: E11.9 Type 2 diabetes mellitus without complications (principal); Z71.3 Dietary counseling and surveillance
CPT/HCPCS: G0109

== ENCOUNTER → 2021-02-25 09:18 | Outpatient (CLI) | payer OTHER, SELFPAY ==
--- NOTE | 2021-02-26 15:22 | DIAB.FU ---
Diabetes Education Class Series: Diabetes Lifestyle Change and Ongoing Support Name: Cornelia Rosa Date: 02/25/21 Time: 016-2474b Cornelia presents with support person, Cathy for last DM ed class. She participated well today. States she and Cathy continue walking three days per week. Has noticed increased physical capabilities since walking more. has been working on decreasing candy intake as well. Class topics covered: ? Discuss the difference between physical activity and exercise ? Determine physical activity benefits and impact on diabetes ? Review physical activity recommendations and safety ? Discuss emergency preparedness ? Discuss diabetes and emotions (diabetes burnout/distress) ? Review and practice stress management techniques ? Review support groups and community resources ? Discuss the role of family support in diabetes care ? What is going well? Challenges of diabetes? ? Set SMART goals Follow-up: 1:1 visit follow-up TBD. Will call pt to schedule. Sherri Levi RDN, [facility] Registered Dietitian, Certified Diabetes Care and Tar Leveler [phone] [email or web address]
== END ==
PROVIDERS: PCP Registered Nurse Diabetes Educator; Referring Provider Registered Nurse Diabetes Educator; Visit Provider Registered Nurse Diabetes Educator
DX: E11.9 Type 2 diabetes mellitus without complications (principal); Z71.3 Dietary counseling and surveillance
CPT/HCPCS: G0109

== ENCOUNTER → 2021-03-06 15:18 | Outpatient (CLI) | payer OTHER, SELFPAY ==
--- NOTE | 2021-03-07 16:48 | DIAB.FU ---
Follow-up Diabetes Education Assessment Name: Cornelia Rosa Date: 03/06/21 Time: 330-5p Dx: Type II Diabetes Cornelia presents for follow-up after completing DM ed classes. Reports improved swollen LE with diuretic and lower Na diet. states she has completed an eye exam, but not dental yet. Reports continued physical activity plan. Also states she has increased vegetable intake in evening. Still some confusion on what foods are carbs vs protein. Diet recall indicates low protein intake at breakfast. Very balanced dinner. Eating three times per day. She is baking with sugar subs and choosing SF options for coffee. Anthropometrics: Ht: 65 Wt: 270.2# today, indicating a 10# loss since last visit. She is very happy about this. Likely a combination of weight loss efforts and decreased fluid retention. Physical Activity: Walking with friend, Cathy, 15-20 min three times per day. Self-Monitoring Blood Glucose: No BG to review, but has purchased a meter. Tried using in session today, but meter would not display results. Encouraged her to call company or try to exchange defective meter. Diabetes Medications: none Pertinent Labs: HgA1c 6.7% Past Medical History: (Last Reviewed 12/31/20 @ 14:33 by YONI Davila) Abnormal mammogram Diabetes mellitus type 2, controlled, without complications Healthy female No pertinent family history No pertinent past surgical history Obesity Peripheral edema Intervention: This participant was very receptive. Provided appropriate educational handouts. Discussed the following topics: Recent blood sugar results and trends BG monitoring Review of general nutrition recommendations and current intake Physical activity plan and impact on blood sugars Prevention of complications: foot care, dental and eye appointments Created SMART goals for patient self-care and success. Goals: try yoplait light instead of original- in progess Get a rain coat to walk outside- met (got umbrella instead) Have protein at each meal and snack- in progress add nuts to morning yogurt- new Keep walking 3 x per week or more- new Make dental appt- new Follow-up: TARA BELTRÁN follow-up next year or prleo Levi RDN, [facility] Certified Diabetes Care and Wood Heel Finisher P: [phone] Thank you for this referral
== END ==
PROVIDERS: PCP Registered Nurse Diabetes Educator; Referring Provider Registered Nurse Diabetes Educator; Visit Provider Registered Nurse Diabetes Educator
DX: E11.9 Type 2 diabetes mellitus without complications (principal); Z71.3 Dietary counseling and surveillance
CPT/HCPCS: G0108

== ENCOUNTER → 2021-06-20 10:07 | Outpatient (CLI) | payer OTHER, SELFPAY ==
[2021-06-20 12:02] LABS: Hemoglobin A1C% w Est Avg Glu 6.9 % (4.0-6.0)
== END ==
PROVIDERS: PCP Registered Nurse Diabetes Educator; Referring Provider Registered Nurse Diabetes Educator; Visit Provider Registered Nurse Diabetes Educator
DX: E11.9 Type 2 diabetes mellitus without complications (principal)
CPT/HCPCS: 36415; 83036

== ENCOUNTER → 2021-06-27 12:19 | Outpatient (CLI) | payer OTHER, SELFPAY ==
[2021-06-27 14:45] LABS: Creatinine Urine Random 140.7 mg/dL
[2021-06-27 14:50] LABS: Microalbumi Creatinin Ratio Ur 15.6 ug/mg CR (<30); Microalbumin Urine Random 2.2 mg/dL (0-1.6)
== END ==
PROVIDERS: PCP Registered Nurse Diabetes Educator; Referring Provider Registered Nurse Diabetes Educator; Visit Provider Registered Nurse Diabetes Educator
DX: E11.9 Type 2 diabetes mellitus without complications (principal)
CPT/HCPCS: 82043; 82570

== ENCOUNTER → 2021-07-15 13:25 | Outpatient (CLI) | payer OTHER, SELFPAY ==
--- NOTE | 2021-07-15 13:27 | DI.MG.S_ITS ---
UNILATERAL LEFT DIGITAL DIAGNOSTIC MAMMOGRAM 3D/2D: 07/15/2021 CLINICAL: Late short follow up. Comparison is made to exams dated: 01/02/2021 mammogram, 11/16/2020 mammogram, 11/17/2018 mammogram, and 01/02/2021 ultrasound [facility]. There are scattered fibroglandular elements in left breast. There is a stable 0.9 cm oval equal density focal asymmetry with a circumscribed margin in the left breast at 1 o'clock middle depth. No other significant masses or calcifications are seen in the breast. IMPRESSION: INCOMPLETE: NEEDS ADDITIONAL IMAGING EVALUATION Stable appearing 0.9 cm oval equal density focal asymmetry in the left breast most likely is a cyst and remains indeterminate. An ultrasound is recommended. Exam findings were conveyed to the patient. This exam was interpreted at Station ID: [id number]. NOTE: For mammograms, a report in lay terms will be sent to the patient. Approximately 15% of breast malignancies will not be visualized mammographically. In the management of a palpable breast mass, a negative mammogram must not discourage biopsy of a clinically suspicious lesion. Electronically Signed By: Kishore Bedoya M.D. slc/:07/15/2021 13:56:09 ACR BI-RADS Category 0: Incomplete 3340F
== END ==
PROVIDERS: PCP Registered Nurse Diabetes Educator; Referring Provider Registered Nurse Diabetes Educator; Visit Provider Registered Nurse Diabetes Educator
DX: N64.89 Other specified disorders of breast (principal); R92.8 Other abnormal and inconclusive findings on diagnostic imaging of breast; N60.09 Solitary cyst of unspecified breast
CPT/HCPCS: 77065; G0279

== ENCOUNTER → 2021-08-20 14:40 | Outpatient (CLI) | payer OTHER, SELFPAY ==
--- NOTE | 2021-08-20 14:41 | DI.US.S_ITS ---
LIMITED ULTRASOUND OF LEFT BREAST AND AXILLA: 08/20/2021 CLINICAL: Patient returns today to evaluate an asymmetry in the left breast. Comparison is made to exams dated: 07/15/2021 mammogram, 01/02/2021 ultrasound, 01/02/2021 mammogram, 11/16/2020 mammogram, and 11/17/2018 mammogram - [facility]. Color flow ultrasound of the left breast 1 o'clock, 3 o'clock, and axilla regions was performed. Hahn scale images of the real-time examination were reviewed. There is a 0.8 cm x 1.5 cm x 0.7 cm wider than tall oval cyst in the left breast at 3 o'clock posterior depth 9 cm from the nipple. This oval cyst is hypoechoic with a well-defined boundary and internal echoes. This abnormality is not significantly changed and correlates with mammography findings. Color flow imaging demonstrates that there is no vascularity present. There also is a 0.7 cm x 0.7 cm x 0.4 cm oval cyst with a septated internal wall in the left breast at 1 o'clock middle depth 3 cm from the nipple. This oval cyst is anechoic. This correlates as an incidental finding. No significant abnormalities were seen sonographically in the left axilla. IMPRESSION: PROBABLY BENIGN The 0.8 cm x 1.5 cm x 0.7 cm wider than tall oval cyst in the left breast at 3 o'clock posterior depth is consistent with a complicated cyst and is probably benign. The 0.7 cm x 0.7 cm x 0.4 cm oval cyst in the left breast at 1 o'clock middle depth is consistent with a complicated cyst and is probably benign. A follow-up mammogram and an ultrasound in 6 months is recommended to demonstrate stability. This exam was interpreted at Station ID: [id number]. Electronically Signed By: Morgan de/henna:08/20/2021 16:42:29 letter sent: Followup Recommended Ultrasound BI-RADS: 3 Probably benign
== END ==
PROVIDERS: PCP Registered Nurse Diabetes Educator; Referring Provider Registered Nurse Diabetes Educator; Visit Provider Registered Nurse Diabetes Educator
DX: R92.8 Other abnormal and inconclusive findings on diagnostic imaging of breast (principal); N60.02 Solitary cyst of left breast
CPT/HCPCS: 76642

== ENCOUNTER → 2022-01-05 08:43 | Outpatient (CLI) | payer OTHER, SELFPAY ==
[2022-01-05 10:03] LABS: Hematocrit 38.6 % (36-46); Mean Corpuscular HGB Conc 33.6 % (30-36); Mean Corpuscular Hemoglobin 28.7 PG (26-34); Mean Corpuscular Volume 85.4 fL (80-100); Platelet Count 360 X10^3/uL (150-400); Red Blood Cell Count 4.52 X10^6/uL (4.0-5.2); Red Cell Distribution Width 14.1 % (11.6-14.8); White Blood Cell Count 11.3 X10^3/uL (4.5-11.0)
[2022-01-05 10:31] LABS: Hemoglobin A1C% w Est Avg Glu 6.8 % (4.0-6.0)
[2022-01-05 10:34] LABS: Alanine Aminotransferase 23 IU/L (<35); Albumin 3.9 g/dL (3.5-5.0); Albumin Globulin Ratio 1.1 (1.0-2.8); Alkaline Phosphatase 68 U/L (38-126); Aspartate Aminotransferase 27 IU/L (14-36); BUN Creatinine Ratio 25.4 (6-22); Bilirubin Total 0.7 mg/dL (0.2-1.3); Blood Urea Nitrogen 15 mg/dL (7-17); Calcium 8.6 mg/dL (8.4-10.2); Carbon Dioxide 33 mmol/L (22-32); Chloride 96 mmol/L (98-107); Cholesterol 195 mg/dL (140-199); Estimated Glomerular Filt Rate > 60 mL/min (>60); Globulin 3.6 g/dL (1.7-4.1); Glucose 120 mg/dL (80-110); HDL Cholesterol 35 mg/dL (40-60); HEMOLYSIS < 15 (0-50); LDL Cholesterol Calculated 133 mg/dL (<100); Potassium 3.6 mmol/L (3.4-5.1); Sodium 134 mmol/L (137-145); Total Protein 7.5 g/dL (6.3-8.2); Triglycerides 134 mg/dL (35-150)
[2022-01-05 11:01] LABS: TSH w/ Reflex to FT4 1.89 uIU/mL (0.47-4.68)
[2022-01-05 11:42] LABS: Creatinine Urine Random 85.4 mg/dL
[2022-01-05 11:46] LABS: Microalbumi Creatinin Ratio Ur 15.2 ug/mg CR (<30); Microalbumin Urine Random 1.3 mg/dL (0-1.6)
== END ==
PROVIDERS: PCP Registered Nurse Diabetes Educator; Referring Provider Registered Nurse Diabetes Educator; Visit Provider Registered Nurse Diabetes Educator
DX: E11.9 Type 2 diabetes mellitus without complications (principal); I10 Essential (primary) hypertension
CPT/HCPCS: 36415; 80053; 80061; 82043; 82570; 83036; 84443; 85027

== ENCOUNTER → 2022-05-16 08:10 | Outpatient (CLI) | payer OTHER, SELFPAY ==
[2022-05-16 09:20] LABS: Cholesterol 215 mg/dL (140-199); HDL Cholesterol 43 mg/dL (40-60); LDL Cholesterol Calculated 139 mg/dL (<100); Triglycerides 167 mg/dL (35-150)
== END ==
PROVIDERS: PCP Registered Nurse Diabetes Educator; Referring Provider Registered Nurse Diabetes Educator; Visit Provider Registered Nurse Diabetes Educator
DX: E78.2 Mixed hyperlipidemia (principal); I10 Essential (primary) hypertension
CPT/HCPCS: 36415; 80061

== ENCOUNTER → 2022-05-19 14:58 | Outpatient (CLI) | payer OTHER, SELFPAY ==
[2022-05-20 15:37] LABS: Fecal Immunochemical Test Positive (Negative)
== END ==
PROVIDERS: PCP Registered Nurse Diabetes Educator; Referring Provider Registered Nurse Diabetes Educator; Visit Provider Registered Nurse Diabetes Educator
DX: Z12.11 Encounter for screening for malignant neoplasm of colon (principal)
CPT/HCPCS: 82274

== ENCOUNTER → 2022-08-15 07:50 | Outpatient (CLI) | payer OTHER, SELFPAY ==
[2022-08-15 09:12] LABS: Cholesterol 174 mg/dL (140-199); HDL Cholesterol 38 mg/dL (40-60); LDL Cholesterol Calculated 111 mg/dL (<100); Triglycerides 123 mg/dL (35-150)
[2022-08-16 07:47] LABS: Labcorp Hemoglobin (Hb) A1c 6.9 % (4.8-5.6)
== END ==
PROVIDERS: PCP Registered Nurse Diabetes Educator; Referring Provider Registered Nurse Diabetes Educator; Visit Provider Registered Nurse Diabetes Educator
DX: E78.5 Hyperlipidemia, unspecified (principal); R19.5 Other fecal abnormalities
CPT/HCPCS: 36415; 80061; 83036

== ENCOUNTER → 2023-02-13 08:37 | Outpatient (CLI) | payer OTHER, SELFPAY ==
[2023-02-13 09:32] LABS: Hematocrit 40.9 % (36-46); Hemoglobin 13.7 g/dL (12.0-16.0); Mean Corpuscular HGB Conc 33.3 % (30-36); Mean Corpuscular Hemoglobin 27.9 PG (26-34); Mean Corpuscular Volume 83.6 fL (80-100); Platelet Count 362 X10^3/uL (150-400); Red Cell Distribution Width 14.6 % (11.6-14.8)
[2023-02-13 09:37] LABS: Hemoglobin A1C% w Est Avg Glu 6.7 % (4.0-6.0)
[2023-02-13 09:42] LABS: Alanine Aminotransferase 19 IU/L (<35); Albumin 3.9 g/dL (3.5-5.0); Albumin Globulin Ratio 1.1 (1.0-2.8); Alkaline Phosphatase 64 U/L (38-126); Aspartate Aminotransferase 22 IU/L (14-36); BUN Creatinine Ratio 32.7 (6-22); Bilirubin Total 0.6 mg/dL (0.2-1.3); Blood Urea Nitrogen 17 mg/dL (7-17); Calcium 9.2 mg/dL (8.4-10.2); Carbon Dioxide 35 mmol/L (22-32); Chloride 94 mmol/L (98-107); Estimated Glomerular Filt Rate > 60 mL/min (>60); Globulin 3.5 g/dL (1.7-4.1); Glucose 125 mg/dL (80-110); HEMOLYSIS < 15 (0-50); Potassium 3.7 mmol/L (3.4-5.1); Sodium 135 mmol/L (137-145); Total Protein 7.4 g/dL (6.3-8.2)
[2023-02-13 10:11] LABS: TSH w/ Reflex to FT4 2.28 uIU/mL (0.47-4.68)
[2023-02-13 11:42] LABS: Creatinine Urine Random 113.3 mg/dL
[2023-02-13 11:46] LABS: Microalbumin Urine Random 6.8 mg/dL (0-1.6)
== END ==
PROVIDERS: PCP Registered Nurse Diabetes Educator; Referring Provider Registered Nurse Diabetes Educator; Visit Provider Registered Nurse Diabetes Educator
DX: E11.9 Type 2 diabetes mellitus without complications (principal); E78.5 Hyperlipidemia, unspecified; I10 Essential (primary) hypertension
CPT/HCPCS: 36415; 80053; 82043; 82570; 83036; 84443; 85027

== ENCOUNTER → 2023-06-26 08:20 | Outpatient (CLI) | payer OTHER, SELFPAY ==
[2023-06-26 09:14] LABS: Add Manual Diff / Slide Review NO; Basophils Absolute Auto 100 /uL (0-100); Basophils Percent Auto 0.5 % (0-2); Eosinophils Absolute Auto 100 /uL (0-450); Eosinophils Percent Auto 1.1 % (2-4); Hematocrit 41.3 % (36-46); Hemoglobin 13.9 g/dL (12.0-16.0); Lymphocytes Absolute Auto 2400 /uL (1100-4500); Lymphocytes Percent Auto 21.8 % (25-40); Mean Corpuscular HGB Conc 33.8 % (30-36); Mean Corpuscular Hemoglobin 28.1 PG (26-34); Mean Corpuscular Volume 83.2 fL (80-100); Monocytes Absolute Auto 1000 /uL (0-900); Monocytes Percent Auto 8.9 % (3-14); Neutrophils Absolute Auto 7400 /uL (1500-7000); Neutrophils Percent Auto 67.7 % (50-75); Platelet Count 364 X10^3/uL (150-400); Red Blood Cell Count 4.96 X10^6/uL (4.0-5.2)
[2023-06-26 09:35] LABS: Cholesterol 171 mg/dL (140-199); HDL Cholesterol 39 mg/dL (40-60); Hemoglobin A1C% w Est Avg Glu 6.6 % (4.0-6.0); LDL Cholesterol Calculated 111 mg/dL (<100); Triglycerides 107 mg/dL (35-150)
[2023-06-26 11:26] LABS: Creatinine Urine Random 87.2 mg/dL
[2023-06-26 11:32] LABS: Microalbumi Creatinin Ratio Ur 37.8 ug/mg CR (<30); Microalbumin Urine Random 3.3 mg/dL (0-1.6)
[2023-06-28 20:47] LABS: Fecal Immunochemical Test Negative (Negative)
== END ==
LOC: LAB 08:22
PROVIDERS: PCP Registered Nurse Diabetes Educator; Referring Provider Registered Nurse Diabetes Educator; Visit Provider Registered Nurse Diabetes Educator
DX: E11.9 Type 2 diabetes mellitus without complications (principal); E78.2 Mixed hyperlipidemia; R80.9 Proteinuria, unspecified; Z12.11 Encounter for screening for malignant neoplasm of colon; Z12.12 Encounter for screening for malignant neoplasm of rectum
CPT/HCPCS: 36415; 80061; 82043; 82274; 82570; 83036; 85025

== ENCOUNTER → 2024-02-05 08:26 | Outpatient (CLI) | payer OTHER, SELFPAY ==
[2024-02-05 08:53] LABS: Hematocrit 41.9 % (36-46); Hemoglobin 13.9 g/dL (12.0-16.0); Mean Corpuscular HGB Conc 33.2 % (30-36); Mean Corpuscular Hemoglobin 28.1 PG (26-34); Mean Corpuscular Volume 84.5 fL (80-100); Platelet Count 401 X10^3/uL (150-400); Red Blood Cell Count 4.96 X10^6/uL (4.0-5.2); Red Cell Distribution Width 14.4 % (11.6-14.8); White Blood Cell Count 13.2 X10^3/uL (4.5-11.0)
[2024-02-05 09:03] LABS: Hemoglobin A1C% w Est Avg Glu 6.7 % (4.0-6.0)
[2024-02-05 09:10] LABS: Alanine Aminotransferase 19 IU/L (<35); Albumin Globulin Ratio 1.3 (1.0-2.8); Alkaline Phosphatase 67 U/L (38-126); Aspartate Aminotransferase 24 IU/L (14-36); BUN Creatinine Ratio 26.9 (6-22); Bilirubin Total 0.7 mg/dL (0.2-1.3); Blood Urea Nitrogen 14 mg/dL (7-17); Calcium 8.9 mg/dL (8.4-10.2); Carbon Dioxide 30 mmol/L (22-32); Chloride 96 mmol/L (98-107); Cholesterol 176 mg/dL (140-199); Estimated Glomerular Filt Rate > 60 mL/min (>60); Globulin 3.2 g/dL (1.7-4.1); Glucose 136 mg/dL (80-110); HDL Cholesterol 36 mg/dL (40-60); HEMOLYSIS < 15 (0-50); LDL Cholesterol Calculated 116 mg/dL (<100); Potassium 3.7 mmol/L (3.4-5.1); Sodium 132 mmol/L (137-145); Total Protein 7.2 g/dL (6.3-8.2); Triglycerides 122 mg/dL (35-150)
[2024-02-05 09:41] LABS: TSH w/ Reflex to FT4 1.44 uIU/mL (0.47-4.68)
[2024-02-05 10:32] LABS: Creatinine Urine Random 103.23 mg/dL
[2024-02-05 10:39] LABS: Microalbumin Urine Random 3.1 mg/dL (0-1.6)
== END ==
PROVIDERS: PCP Registered Nurse Diabetes Educator; Referring Provider Registered Nurse Diabetes Educator; Visit Provider Registered Nurse Diabetes Educator
DX: E11.9 Type 2 diabetes mellitus without complications (principal); R80.9 Proteinuria, unspecified; E78.5 Hyperlipidemia, unspecified; I10 Essential (primary) hypertension
CPT/HCPCS: 36415; 80053; 80061; 82043; 82570; 83036; 84443; 85027

== ENCOUNTER → 2024-06-03 08:27 | Outpatient (CLI) | payer OTHER, SELFPAY ==
[2024-06-03 09:07] LABS: Hematocrit 41.8 % (36-46); Hemoglobin 13.8 g/dL (12.0-16.0); Mean Corpuscular Hemoglobin 27.5 PG (26-34); Mean Corpuscular Volume 83.4 fL (80-100); Platelet Count 370 X10^3/uL (150-400); Red Blood Cell Count 5.01 X10^6/uL (4.0-5.2); Red Cell Distribution Width 14.3 % (11.6-14.8)
[2024-06-03 09:13] LABS: Hemoglobin A1C% w Est Avg Glu 6.6 % (4.0-6.0)
[2024-06-03 09:28] LABS: BUN Creatinine Ratio 28.1 (6-22); Blood Urea Nitrogen 16 mg/dL (7-17); Calcium 9.3 mg/dL (8.4-10.2); Carbon Dioxide 34 mmol/L (22-32); Chloride 95 mmol/L (98-107); Cholesterol 157 mg/dL (140-199); Estimated Glomerular Filt Rate > 60 mL/min (>60); Glucose 132 mg/dL (80-110); HDL Cholesterol 40 mg/dL (40-60); HEMOLYSIS < 15 (0-50); LDL Cholesterol Calculated 98 mg/dL (<100); Potassium 4.1 mmol/L (3.4-5.1); Sodium 134 mmol/L (137-145); Triglycerides 93 mg/dL (35-150)
[2024-06-03 10:36] LABS: Creatinine Urine Random 107.68 mg/dL
[2024-06-03 10:41] LABS: Microalbumin Urine Random 5.7 mg/dL (0-1.6)
== END ==
PROVIDERS: PCP Registered Nurse Diabetes Educator; Referring Provider Registered Nurse Diabetes Educator; Visit Provider Registered Nurse Diabetes Educator
DX: E11.9 Type 2 diabetes mellitus without complications (principal); E78.5 Hyperlipidemia, unspecified; I10 Essential (primary) hypertension; R79.89 Other specified abnormal findings of blood chemistry; E87.1 Hypo-osmolality and hyponatremia
CPT/HCPCS: 36415; 80048; 80061; 82043; 82570; 83036; 85027

== ENCOUNTER → 2024-10-28 08:10 | Outpatient (CLI) | payer OTHER, SELFPAY ==
[2024-10-28 09:12] LABS: Add Manual Diff / Slide Review NO; Basophils Absolute Auto 100 /uL (0-100); Basophils Percent Auto 0.6 % (0-2); Eosinophils Absolute Auto 100 /uL (0-450); Eosinophils Percent Auto 0.9 % (2-4); Hematocrit 42.2 % (36-46); Lymphocytes Absolute Auto 2600 /uL (1100-4500); Lymphocytes Percent Auto 20.4 % (25-40); Mean Corpuscular HGB Conc 33.1 % (30-36); Mean Corpuscular Hemoglobin 28.1 PG (26-34); Mean Corpuscular Volume 85.1 fL (80-100); Monocytes Absolute Auto 900 /uL (0-900); Monocytes Percent Auto 6.9 % (3-14); Neutrophils Absolute Auto 9000 /uL (1500-7000); Neutrophils Percent Auto 71.2 % (50-75); Platelet Count 388 X10^3/uL (150-400); Red Blood Cell Count 4.96 X10^6/uL (4.0-5.2); Red Cell Distribution Width 13.8 % (11.6-14.8); White Blood Cell Count 12.6 X10^3/uL (4.5-11.0)
[2024-10-28 09:38] LABS: Alanine Aminotransferase 19 IU/L (<35); Albumin 4.2 g/dL (3.5-5.0); Albumin Globulin Ratio 1.3 (1.0-2.8); Alkaline Phosphatase 66 U/L (38-126); Aspartate Aminotransferase 28 IU/L (14-36); BUN Creatinine Ratio 26.2 (6-22); Bilirubin Total 0.7 mg/dL (0.2-1.3); Blood Urea Nitrogen 16 mg/dL (7-17); Calcium 8.9 mg/dL (8.4-10.2); Carbon Dioxide 31 mmol/L (22-32); Chloride 97 mmol/L (98-107); Cholesterol 155 mg/dL (140-199); Estimated Glomerular Filt Rate > 60 mL/min (>60); Globulin 3.2 g/dL (1.7-4.1); Glucose 113 mg/dL (70-99); HDL Cholesterol 33 mg/dL (40-60); HEMOLYSIS < 15 (0-50); LDL Cholesterol Calculated 98 mg/dL (<100); Potassium 3.9 mmol/L (3.4-5.1); Sodium 136 mmol/L (137-145); Total Protein 7.4 g/dL (6.3-8.2); Triglycerides 120 mg/dL (35-150)
[2024-10-28 09:40] LABS: Microalbumin Urine Random 11.8 mg/dL (0-1.6)
[2024-10-28 10:24] LABS: TSH w/ Reflex to FT4 1.79 uIU/mL (0.47-4.68)
== END ==
PROVIDERS: PCP Registered Nurse Diabetes Educator; Referring Provider Registered Nurse Diabetes Educator; Visit Provider Registered Nurse Diabetes Educator
DX: E78.5 Hyperlipidemia, unspecified (principal); E11.9 Type 2 diabetes mellitus without complications; I10 Essential (primary) hypertension; R80.9 Proteinuria, unspecified
CPT/HCPCS: 36415; 80053; 80061; 82043; 82570; 83036; 84443; 85025

== ENCOUNTER → 2025-02-17 08:04 | Outpatient (CLI) | payer OTHER, SELFPAY ==
[2025-02-17 10:27] LABS: Add Manual Diff / Slide Review NO; Hematocrit 39.5 % (36-46); Hemoglobin 13.1 g/dL (12.0-16.0); Lymphocytes Absolute Auto 2700 /uL (1100-4500); Mean Corpuscular HGB Conc 33.2 % (30-36); Mean Corpuscular Hemoglobin 28.1 PG (26-34); Mean Corpuscular Volume 84.7 fL (80-100); Platelet Count 414 X10^3/uL (150-400)
== END ==
PROVIDERS: PCP Registered Nurse Diabetes Educator; Referring Provider Registered Nurse Diabetes Educator; Visit Provider Registered Nurse Diabetes Educator
DX: D72.829 Elevated white blood cell count, unspecified (principal)
CPT/HCPCS: 36415; 85025